=== PATIENT | male | born 1990 | race Hispanic/Latino ===

== ENCOUNTER 2017-08-10 15:49 | Emergency (ER) | payer OTHER, BC ==
[~2017-08-10] VITALS: Ht 172.7 cm; Wt 99.8 kg
[2017-08-10 16:57] VITALS: BP 147/88
== END 2017-08-10 17:00 | disposition home or self-care (01) ==
LOC: FSED 15:49
DX: S61.210A Laceration without foreign body of right index finger without damage to nail, initial encounter (principal); W27.2XXA Contact with scissors, initial encounter; Y92.009 Unspecified place in unspecified non-institutional (private) residence as the place of occurrence of the external cause
CPT/HCPCS: 99283

== ENCOUNTER 2017-08-18 13:53 | Emergency (ER) | payer BC ==
[~2017-08-18] VITALS: Ht 172.7 cm; Wt 99.8 kg
[2017-08-18 14:28] VITALS: BP 142/75
== END 2017-08-18 14:05 | disposition home or self-care (01) ==
LOC: FSED 13:53
DX: Z48.02 Encounter for removal of sutures (principal)
CPT/HCPCS: 99282